=== PATIENT | male | born 1960 | race Caucasian/White ===

== ENCOUNTER 2025-01-01 00:03 | Emergency (ER) | payer BC, SELFPAY ==
[2025-01-01] VITALS (18 sets, daily range): BP systolic 126–172; BP diastolic 90–114; BMI 35.9
--- NOTE | 2025-01-01 00:35 | ED.GENMED ---
History of Present Illness
General
Chief Complaint: Musculo-Skeletal Complaint
Source: patient, ambulance crew, physician (Spoke with ED physician [facility]. Patient presents with anterior left prosthetic hip dislocation. Unsuccessful attempts at reduction at [facility].), previous radiology exam (Left
hip x-ray [facility] earlier today showing anterior dislocation of prosthetic hip) and previous hospital records
Time Seen by Provider: 01/01/25 00:05
History of Present Illness
History of Present Illness:
This is a 64-year-old gentleman with history of hypertension, hyperlipidemia, GERD who underwent left total hip replacement 7 weeks [address] performed [address] Quarles.
Overall feeling well but he does admit to several episodes over the past few weeks of intermittent sensation of popping, slipping sensation of his hip and then sensation that it 'pops back in'
Similar episode occurred perhaps 2 weeks ago, urgent visit with Dr. Marie, everything seemed okay.
Today while standing talking with friends he turned and felt sudden pain to his left hip, and then fell to the ground.
Presented to [facility] ED where he was found to have anterior prosthetic hip dislocation. No evidence of fracture. Unsuccessful closed reduction at [facility].
ED physician at [facility] discussed the case with Dr. Marie who recommended patient be transferred to [place] ED.
I have spoken with Dr. Quarles, he recommends we attempt closed reduction with adequate moderate sedation and as dislocation is anterior, technique is extension and traction then internal rotation.
Patient states he has had nothing to eat or drink all day today.
Admits to moderate pain about his left hip, worse with attempted movement, markedly improves with lying still. Offers no other complaints. No weakness or numbness.
Home medications include: Pindolol, amlodipine, Lipitor, aspirin 325 mg daily, as needed Lasix, omeprazole.
Past History
Past History
ED Past Medical History: GERD, HTN and Hypercholesterolemia
ED Past Surgical History: Orthopedic (Left total hip replacement October 2024. Left wrist, left knee, right ankle)
Social History
Tobacco: Non-smoker
Alcohol: Occasional
Drug: None
Personal: Single
Living: alone
Employment: Employed
Family History
Family History: Other (Noncontributory)
Phy Exam
Physical Exam
Physical Exam:
GENERAL: 64-year-old gentleman appears his stated age, awake and alert, pleasant, appears in no acute distress.
EYE: anicteric
NECK: Supple, nontender, no meningismus, no significant adenopathy.
ENT: posterior pharynx is clear, oral mucosa is moist. No rhinorrhea. No loose teeth.
CARDIAC: Regular rate and rhythm. no murmur.
LUNGS: Clear breath sounds bilaterally, no acute respiratory distress, no wheezes/rales/rhonchi
ABDOMEN: Soft, nondistended, without focal tenderness
NEUROLOGICAL: Alert and oriented x3, no focal neuro deficits.
SKIN: Warm and dry, normal color, skin intact. No rash.
MUSCULOSKELETAL: No C/C/E. peripheral pulses are full and equal b/l. Moderate tenderness about the left hip with markedly limited range of motion left hip related to pain. Left lower extremity is shortened and externally rotated.
PSYCH: Normal and appropriate interaction.
Course
Orders/Labs/Results
Orders:
Orders
01/01/25 00:27
Propofol [Diprivan] 20 ml .ROUTE .STK-MED
01/01/25 00:40
Propofol [Diprivan] 40 ml .ROUTE .STK-MED
01/01/25 01:05
Hip, Left 1 View [CR Hip - LT without Pel 1 Vw] Urgent
Comment:
Reason For Exam: post reduction portable
Vital Signs
Initial and Last Documented VS:
Initial Vital Signs
Pulse Resp Pulse Ox
77 15 95
01/01/25 00:05 01/01/25 00:05 01/01/25 00:05
Last Documented Vital Signs
Temp Pulse Resp BP Pulse Ox
98.6 F 78 18 147/95 95
01/01/25 01:38 01/01/25 02:15 01/01/25 02:15 01/01/25 02:00 01/01/25 03:46
Procedures
Moderate Sedation
ASA Risk Score: Class II
Chart and allergies reviewed: Yes
Consent for anesthesia obtained: Yes
Time out completed (validating right patient & procedure): Yes
Moderate Sedation Start Time(when first medication is given): 00:50
History of difficult intubation: No
Airway free of obstruction: Yes
Patient has a gag reflex: Yes
Patient is able to open mouth: Yes
Patient has no dentures: Yes
Patient has no loose teeth: Yes
Medication administered by Provider during Moderate Sedation: IV Propofol (mg)
Total dose administered: 300
Time drug administered: 00:50
Moderate Sedation Procedure End Time: 01:02
Joint/Fracture Reduction
Left Hip:
Indication for procedure:: Anterior prosthetic hip dislocation
Procedure completed by: Homero CHILD ; Kimberly Randolph DO
Consent form signed: Yes
Joint reduced: with anesthesia sedation (Moderate sedation at bedside)
Anesthesia/sedation: Moderate sedation
Injury was: closed
Further treatement: needs re-check only
Post reduction exam: stable
Capillary Refill: normal
Normal distal neurovascular exam?: Yes
MDM/Problems Addressed
Differential Diagnosis Includes:
Images from [facility] reviewed. Shows anterior prosthetic hip dislocation. No evidence of fracture.
Will plan to attempt closed reduction under moderate sedation in the ED.
If unsuccessful will contact orthopedics.
*Radiology
Radiology exam reviewed: preliminary read by ED provider
*Pulse Oximetry
Patient hypoxic: no
*Critical Care Note
Total Time (30-74mins, 75-104mins- exclusive of procedures): Not Applicable
Update Note
Update Note:
01:15
Postreduction film shows successful closed reduction. No fracture.
Knee immobilizer has been placed on left leg.
Patient is awake and alert, comfortable.
Will plan for discharge to home with strict instructions to keep knee immobilizer in place at all times.
Prompt follow-up with orthopedics for recheck.
ED Attending Note
-
Portions of this chart may have been created with voice recognition software.� Occasional wrong word or��sound alike� substitutions may have occurred due to the inherent limitations of voice recognition software.
Discharge Plan
Departure
Patient Disposition: Home (Routine Discharge)
Date of Disposition: 01/01/25
Time of Disposition: 01:18
Patient with high blood pressure during this ER visit?: No
Condition: Good
Discharge Problem:
Dislocation of prosthesis of left hip joint
Instructions: Hip Dislocation (DC), How to use a knee brace, MODERATE SEDATION ADULT
Referrals:
Radames Quarles MD [Active] - Call in 1-3 days for appt
Activity Restrictions/Additional Instructions:
Keep knee immobilizer on at ALL TIMES!!!
Along with knee immobilizer, continue with routine hip precautions.
Call Dr Quarles's office on Thursday for follow up appointment this week.
Interventions
Interventions:
*Risk Screen - Suicide Last Done: 01/01/25 00:11
*General Assessment Last Done: 01/01/25 00:11
*Neglect/Abuse Screening Last Done: 01/01/25 00:11
*ED- Fall Risk Assessment Last Done: 01/01/25 00:11
*ED COVID-19 Vaccine History Last Done: 01/01/25 00:11
ED-Musculoskeletal Assessment Last Done: 01/01/25 00:11
Discharge Date and Time
Print Language: ARGENTINE
== END 2025-01-01 11:30 | disposition home or self-care (01) ==
LOC: EMR 00:03
PROVIDERS: EMERGENCY PHYSICIAN Emergency Medicine; FAMILY PHYSICIAN Student in an Organized Health Care Education/Training Program
DX: T84.021A Dislocation of internal left hip prosthesis, initial encounter (principal); W19.XXXA Unspecified fall, initial encounter; I10 Essential (primary) hypertension; E78.00 Pure hypercholesterolemia, unspecified
CPT/HCPCS: 27265; 99152; 99285; 73501